=== PATIENT | male | born 1975 | race Caucasian/White ===

== ENCOUNTER 2023-04-23 12:21 | Outpatient (CLI) | payer OTHER | END 2023-04-23 12:22 | disposition home or self-care (01) | LOC: SCSMRI 12:21 | PROVIDERS: ATTEND Neurological Surgery | DX: M47.24 Other spondylosis with radiculopathy, thoracic region (principal); M51.16 Intervertebral disc disorders with radiculopathy, lumbar region; M54.2 Cervicalgia; M47.812 Spondylosis without myelopathy or radiculopathy, cervical region; M48.061 Spinal stenosis, lumbar region without neurogenic claudication; M89.38 Hypertrophy of bone, other site; R60.9 Edema, unspecified | CPT/HCPCS: 72040; 72146; 72148 ==